=== PATIENT | female | born 1995 | race Asian ===

== ENCOUNTER 2024-05-10 13:13 | Emergency (ER) | payer MEDICAID ==
[~2024-05-10] VITALS: Ht 165.1 cm; Wt 74.0 kg
[2024-05-10 13:20] VITALS: O2SAT 99
[2024-05-10] MEDS: ACETAMINOPHEN 325MG TABLET PO ONE (15:37)
[2024-05-10 15:58] LABS: CARBON DIOXIDE 26 mEq/L (21-32); CHLORIDE 106 mEq/L (98-107); POTASSIUM 3.2 mEq/L (3.5-5.1); SODIUM 138 mEq/L (136-145)
[2024-05-10 15:59] LABS: CALCIUM 9.7 mg/dL (8.7-10.4)
[2024-05-10 16:03] LABS: CREATININE 0.7 mg/dL (0.6-1.0)
[2024-05-10 16:04] LABS: GLUCOSE 75 mg/dL (70-105); UREA NITROGEN BLOOD 15 mg/dL (9-23)
[2024-05-10 16:05] LABS: ALANINE AMINOTRANSFERASE 8 IU/L (10-49); ALBUMIN 4.9 g/dL (3.2-4.8); ASPARTATE AMINOTRANSFERASE 13 IU/L (<34)
[2024-05-10 16:06] LABS: BILIRUBIN DIRECT 0.1 mg/dL (<=3.0); BILIRUBIN TOTAL 0.5 mg/dL (0.1-1.0); PROTEIN TOTAL 8.2 g/dL (6.0-8.3)
[2024-05-10 16:14] LABS: BASOPHILS % 0.3 % (0.0-2.0); DIFFERENTIAL COMMENT 0; EOSINOPHILS % 1.7 % (0.0-5.0); HEMATOCRIT. 38.3 % (36.0-48.0); LYMPHOCYTES % 25.6 % (20.0-50.0); MEAN CORPUSCULAR HEMOGLOBIN 24.6 pg (28.0-32.0); MEAN CORPUSCULAR HGB CONC 31.4 g/dL (31.0-37.0); MEAN CORPUSCULAR VOLUME 78.3 fL (81.0-99.0); MEAN PLATELET VOLUME 6.9 fl (7.4-10.4); MONOCYTES % 6.4 % (2.0-8.0); PLATELET 373 x1000/uL (130-400); RED BLOOD CELL COUNT 4.89 mill/uL (4.2-5.4); RED CELL DISTRIBUTION WIDTH 15.4 % (11.6-14.6); WHITE BLOOD COUNT 8.4 x1000/uL (4.5-11.0)
[2024-05-10 16:21] LABS: HCG SCREEN NEGATIVE
[2024-05-10 17:49] VITALS: BP 133/70; PULSE 84; RESP 16; TEMP 36.94740; O2SAT 99
[2024-05-10] MEDS: POTASSIUM CHLORIDE 20MEQ/PACKET PO ONE (17:49)
== END 2024-05-10 18:05 | disposition home or self-care (01) ==
LOC: ER 13:45
DX: R10.31 Right lower quadrant pain (principal); Z98.890 Other specified postprocedural states
CPT/HCPCS: 36415; 74176; 80048; 80076; 84703; 85025; 99284